=== PATIENT | female | born 1980 | race African-American/Black ===

== ENCOUNTER 2019-11-28 13:13 | Inpatient (IN) ==
[2019-11-28] MEDS ORDERED: ONDANSETRON 4 MG/2 ML VIAL IV STA (14:01)
[2019-11-28] MEDS ORDERED: AZITHROMYCIN INJ 500 MG in SODIUM CHLORIDE 0.9% 250 ML IV STA (14:01)
[2019-11-28] MEDS ORDERED: FUROSEMIDE 40 MG/4 ML VIAL IV STA (14:01)
[2019-11-28] MEDS ORDERED: methylPREDNISolone SOD SUC 125 MG/2 ML VIAL IV STA (14:01)
[2019-11-28] MEDS ORDERED: PIPERACILLIN/TAZOBACTAM 3,375 MG in SODIUM CHLORIDE 0.9% 100 ML IV STA (14:01)
[2019-11-28] MEDS ORDERED: ALBUTEROL/IPRATROPIUM 3 ML NEB RESP TX STA (14:01)
[2019-11-28 15:04] LABS: ABG Base Excess 7.6 MMOL/L (-2.5-2.5); ABG HCO3 30.8 MMOL/L (20-26); ABG Oxygen Saturation 86.4 % (95-100); ABG PH 7.526 (7.35-7.45); ABG PO2 48.1 MM HG (80-95); ABG TCO2 31.9 MMOL/L (23-27)
[2019-11-28 15:25] LABS: Basophils % 0.3 % (0.0-0.8); Hematocrit 40.8 VOL% (35.7-47.0); Hemoglobin 12.8 GM/DL (12.0-16.0); Immature Granulocytes % 0.7 %; Immature Granulocytes Absolute 0.08 #; Lymphocytes # 1.2 10*3/uL (1.4-4.0); Lymphocytes % 10.2 % (21.3-54.2); Mean Corpuscular HGB Conc 31.4 GM/DL (32-36); Mean Corpuscular Volume 82.8 FL (87-102); Mean Platelet Volume 11.7 FL (9.6-12.0); Neutrophils % 86.8 % (38.7-73.9); Platelet Count 217 T/CUMM (130-400); Red Blood Count 4.93 MC/CUMM (3.8-5.5); Red Cell Distribution Width 13.7 % (9.3-17.3); White Blood Count 11.5 T/CUMM (4-12)
[2019-11-28 15:41] LABS: PT Patient Result 10.9 SECS (9.8-11.9)
[2019-11-28 15:45] LABS: Apearance,Urine CLEAR (Clear); Bilirubin,Urine Negative (Negative); Blood, Urine Negative (Negative); Glucose,Urine (UA) Negative (Negative); Ketones,Urine Negative (Negative); Nitrite,Urine Negative (Negative); Protein,Urine 100 MG/DL; RBC,Urine 1 /HPF (0-4); Squamous Epithelial Cell,Urine Occasional /HPF (0-10); Urine Color Yellow (Yellow); Urine Specific Gravity 1.014 (1.001-1.035); WBC,Urine 1 /HPF (0-6)
[2019-11-28 15:46] LABS: Barbiturates Screen,Urine Negative (Negative); Benzodiazepines Screen,Urine Negative (Negative); Cannabinoid Screen,Urine Negative (Negative); Opiate Screen,Urine Positive (Negative); Phencyclidine Screen,Urine Negative (Negative)
[2019-11-28 16:00] LABS: Alanine Aminotransferase 83 U/L (13-56); Albumin 2.9 G/DL (3.4-5.0); Alkaline Phosphatase 102 U/L (45-117); Aspartate Amino Transferase 120 U/L (0-37); Blood Urea Nitrogen 6 MG/DL (7-18); Calcium 8.3 MG/DL (8.5-10.1); Estimated Glom Filtration Rate 122 ML/MIN; Ferritin 761.2 ng/ml (8-252); Glucose 136 MG/DL (74-106); Osmolality,Calculated 263.5 MOS/KG (273-304); Total Protein 8.2 G/DL (6.4-8.3); Troponin I < 0.015 NG/ML (0.00-0.045)
[2019-11-28] MEDS ORDERED: ACETAMINOPHEN 500 MG TABLET ONE (16:33)
[2019-11-28] MEDS ORDERED: ACETAMINOPHEN 500 MG TABLET PO STA (16:45)
[2019-11-28] MEDS ORDERED: ALUMINUM/MAGNES/SIMETH MAX STR 30 ML UDCUP PO PRN (20:03)
[2019-11-28] MEDS ORDERED: ONDANSETRON 4 MG/2 ML VIAL IV PRN (20:03)
[2019-11-28] MEDS ORDERED: ALBUTEROL SULFATE INH PRN (20:03)
[2019-11-28] MEDS ORDERED: OSELTAMIVIR 75 MG CAPSULE PO SCH (20:03)
[2019-11-28] MEDS: FAMOTIDINE 20 MG/2 ML VIAL IV SCH (21:30)
[2019-11-28] MEDS: HYDROXYCHLOROQUINE 200 MG TABLET PO SCH (21:30)
[2019-11-28] MEDS ORDERED: hydrALAZINE 20 MG/1 ML VIAL IV PRN (22:22)
[2019-11-29 06:19] LABS: Basophils % 0.1 % (0.0-0.8); Hematocrit 43.5 VOL% (35.7-47.0); Hemoglobin 13.5 GM/DL (12.0-16.0); Immature Granulocytes % 0.6 %; Immature Granulocytes Absolute 0.05 #; Lymphocytes # 1.1 10*3/uL (1.4-4.0); Lymphocytes % 12.6 % (21.3-54.2); Mean Corpuscular Volume 83.2 FL (87-102); Mean Platelet Volume 12.1 FL (9.6-12.0); Monocytes % 3.8 % (1.7-12.7); Neutrophils % 82.9 % (38.7-73.9); Platelet Count 231 T/CUMM (130-400); Red Blood Count 5.23 MC/CUMM (3.8-5.5); Red Cell Distribution Width 13.6 % (9.3-17.3); White Blood Count 8.5 T/CUMM (4-12)
[2019-11-29 07:05] LABS: Blood Urea Nitrogen 10 MG/DL (7-18); Calcium 8.1 MG/DL (8.5-10.1); Estimated Glom Filtration Rate 129 ML/MIN; Glucose 197 MG/DL (74-106); Osmolality,Calculated 265.7 MOS/KG (273-304); Troponin I < 0.015 NG/ML (0.00-0.045)
[2019-11-29] MEDS: HYDROXYCHLOROQUINE 200 MG TABLET PO SCH (08:03)
[2019-11-29] MEDS: ENOXAPARIN 40 MG/0.4 ML SYRINGE SUBCUT SCH (08:03)
[2019-11-29] MEDS: FAMOTIDINE 20 MG/2 ML VIAL IV SCH ×3 (08:03→22:26)
[2019-11-29] MEDS ORDERED: ZINC SULFATE 220 MG CAPSULE PO SCH (09:00)
[2019-11-29] MEDS ORDERED: HYDROXYCHLOROQUINE 200 MG TABLET PO SCH (21:00)
[2019-11-29] MEDS: ACETAMINOPHEN 325 MG TABLET PO PRN (22:26)
[2019-11-30] MEDS: LEVOFLOXACIN INJ 750 MG in PREMIX 1 EACH IV SCH (00:01)
[2019-11-30] MEDS: ALBUTEROL INHALER 18 GM INH SCH (01:01)
[2019-11-30 04:14] LABS: ABG HCO3 33.6 MMOL/L (20-26); ABG Oxygen Saturation 93.7 % (95-100); ABG PCO2 46.4 MM HG (35-48); ABG PH 7.484 (7.35-7.45); ABG PO2 67.3 MM HG (80-95); ABG TCO2 30.8 MMOL/L (23-27); Allen Test Positive; Pt O2 Delivery Device Other
[2019-11-30 07:20] LABS: Basophils % 0.1 % (0.0-0.8); Hematocrit 37.6 VOL% (35.7-47.0); Hemoglobin 11.6 GM/DL (12.0-16.0); Immature Granulocytes % 0.9 %; Immature Granulocytes Absolute 0.14 #; Lymphocytes # 1.3 10*3/uL (1.4-4.0); Mean Corpuscular HGB Conc 30.9 GM/DL (32-36); Mean Corpuscular Volume 83.4 FL (87-102); Mean Platelet Volume 11.9 FL (9.6-12.0); Monocytes % 2.7 % (1.7-12.7); Neutrophils % 87.3 % (38.7-73.9); Platelet Count 260 T/CUMM (130-400); Red Blood Count 4.51 MC/CUMM (3.8-5.5); Red Cell Distribution Width 13.9 % (9.3-17.3); White Blood Count 14.9 T/CUMM (4-12)
[2019-11-30] MEDS: ENOXAPARIN 40 MG/0.4 ML SYRINGE SUBCUT SCH (08:35)
[2019-11-30] MEDS: AZITHROMYCIN 250 MG TABLET PO SCH (08:35)
[2019-11-30] MEDS: FAMOTIDINE 20 MG/2 ML VIAL IV SCH ×2 (08:35→21:35)
[2019-11-30 10:14] LABS: Calcium 8.5 MG/DL (8.5-10.1); Osmolality,Calculated 273.2 MOS/KG (273-304)
[2019-11-30] MEDS: methylPREDNISolone SOD SUC 40 MG/1 ML VIAL IV SCH (17:40)
[2019-11-30] MEDS: ACETAMINOPHEN 325 MG TABLET PO PRN (18:13)
[2019-12-01] MEDS: ALBUTEROL INHALER 18 GM INH SCH ×5 (00:15→19:00)
[2019-12-01] MEDS: LEVOFLOXACIN INJ 750 MG in PREMIX 1 EACH IV SCH ×2 (00:20→22:30)
[2019-12-01] MEDS: ACETAMINOPHEN 325 MG TABLET PO PRN ×2 (04:30→21:50)
[2019-12-01 05:53] LABS: Calcium 8.4 MG/DL (8.5-10.1); Osmolality,Calculated 279.8 MOS/KG (273-304)
[2019-12-01] MEDS: methylPREDNISolone SOD SUC 40 MG/1 ML VIAL IV SCH (08:12)
[2019-12-01] MEDS: FAMOTIDINE 20 MG/2 ML VIAL IV SCH ×2 (08:13→21:51)
[2019-12-01] MEDS: ENOXAPARIN 40 MG/0.4 ML SYRINGE SUBCUT SCH (08:13)
[2019-12-01] MEDS: AZITHROMYCIN 250 MG TABLET PO SCH (08:13)
[2019-12-01 08:50] LABS: Hepatitis B Core IgM Quant 0.14 Index; Hepatitis B Surface Ag Quant < 0.10 Index; Hepatitis B Surface Ag Result Negative (Negative); Hepatitis C Virus Ab Quant 0.07 Index; Hepatitis C Virus Ab Result Negative (Negative)
[2019-12-01 09:51] LABS: HIV Antigen/Antibody Result Nonreactive (Nonreactive)
[2019-12-01] MEDS: POTASSIUM CHLORIDE 20 MEQ TABLET PO PRN ×3 (16:00→21:50)
[2019-12-02] MEDS: ALBUTEROL INHALER 18 GM INH SCH ×4 (01:00→19:12)
[2019-12-02] MEDS: ACETAMINOPHEN 325 MG TABLET PO PRN (04:35)
[2019-12-02 05:26] LABS: Calcium 8.4 MG/DL (8.5-10.1); Osmolality,Calculated 284.4 MOS/KG (273-304)
[2019-12-02 05:41] LABS: Basophils % 0.2 % (0.0-0.8); Hematocrit 36.7 VOL% (35.7-47.0); Immature Granulocytes % 1.7 %; Immature Granulocytes Absolute 0.29 #; Lymphocytes # 2.1 10*3/uL (1.4-4.0); Lymphocytes % 12.4 % (21.3-54.2); Mean Platelet Volume 11.3 FL (9.6-12.0); Monocytes % 7.1 % (1.7-12.7); Neutrophils % 78.6 % (38.7-73.9); Platelet Count 337 T/CUMM (130-400); Red Blood Count 4.32 MC/CUMM (3.8-5.5); Red Cell Distribution Width 13.9 % (9.3-17.3); White Blood Count 16.9 T/CUMM (4-12)
[2019-12-02 06:00] LABS: Albumin 2.1 G/DL (3.4-5.0); Bilirubin,Total 0.4 MG/DL (0.2-1.0); Calcium 8.6 MG/DL (8.5-10.1); Ferritin 1311.7 ng/ml (8-252); Osmolality,Calculated 282.5 MOS/KG (273-304); Total Protein 7.4 G/DL (6.4-8.3)
[2019-12-02 06:03] LABS: Band Neutrophils 2 % (0-10); Hypochromasia 1+; Lymphocytes 11 % (20-55); Microcytosis Slight; Platelet Estimate Adequate; Segmented Neutrophils 81 % (50-85); Total Cells Counted 100
[2019-12-02 06:49] LABS: Sedimentation Rate-Westergren 100 MM/HR (0-20)
[2019-12-02] MEDS ORDERED: VANCOMYCIN INJ 1,750 MG in SODIUM CHLORIDE 0.9% 250 ML IV SCH (07:30)
[2019-12-02 08:13] LABS: ABG Base Excess 9.8 MMOL/L (-2.5-2.5); ABG HCO3 34.8 MMOL/L (20-26); ABG Oxygen Saturation 96.7 % (95-100); ABG PCO2 48.8 MM HG (35-48); ABG PH 7.471 (7.35-7.45); ABG PO2 91.7 MM HG (80-95); ABG TCO2 36.3 MMOL/L (23-27)
[2019-12-02] MEDS: POTASSIUM CHLORIDE 20 MEQ TABLET PO PRN (10:15)
[2019-12-02] MEDS: FAMOTIDINE 20 MG/2 ML VIAL IV SCH ×2 (10:15→20:45)
[2019-12-02] MEDS: ENOXAPARIN 40 MG/0.4 ML SYRINGE SUBCUT SCH (10:15)
[2019-12-02] MEDS: PIPERACILLIN/TAZOBACTAM 3,375 MG in SODIUM CHLORIDE 0.9% 100 ML IV SCH ×2 (10:15→17:15)
[2019-12-02] MEDS: methylPREDNISolone SOD SUC 40 MG/1 ML VIAL IV SCH (10:20)
[2019-12-02] MEDS ORDERED: FUROSEMIDE 40 MG/4 ML VIAL IV ONE (11:00)
[2019-12-02] MEDS ORDERED: VANCOMYCIN INJ 1,500 MG in SODIUM CHLORIDE 0.9% 500 ML IV SCH (12:00)
[2019-12-02] MEDS: VANCOMYCIN INJ 1,500 MG in SODIUM CHLORIDE 0.9% 500 ML IV SCH (14:34)
[2019-12-03] MEDS: PIPERACILLIN/TAZOBACTAM 3,375 MG in SODIUM CHLORIDE 0.9% 100 ML IV SCH ×3 (00:05→16:50)
[2019-12-03] MEDS: ALBUTEROL INHALER 18 GM INH SCH ×4 (01:00→19:00)
[2019-12-03] MEDS: VANCOMYCIN INJ 1,500 MG in SODIUM CHLORIDE 0.9% 500 ML IV SCH ×2 (02:15→14:15)
[2019-12-03 04:34] LABS: Basophils # 0.1 10*3/uL (0.0-0.2); Basophils % 0.3 % (0.0-0.8); Hematocrit 36.4 VOL% (35.7-47.0); Hemoglobin 11.1 GM/DL (12.0-16.0); Immature Granulocytes % 1.9 %; Immature Granulocytes Absolute 0.32 #; Lymphocytes # 2.3 10*3/uL (1.4-4.0); Lymphocytes % 13.2 % (21.3-54.2); Mean Corpuscular HGB Conc 30.5 GM/DL (32-36); Mean Corpuscular Volume 84.7 FL (87-102); Mean Platelet Volume 11.3 FL (9.6-12.0); Monocytes % 7.4 % (1.7-12.7); Neutrophils % 77.2 % (38.7-73.9); Platelet Count 369 T/CUMM (130-400); Red Cell Distribution Width 13.8 % (9.3-17.3); White Blood Count 17.2 T/CUMM (4-12)
[2019-12-03 04:35] LABS: ABG HCO3 31.7 MMOL/L (20-26); ABG Oxygen Saturation 93.4 % (95-100); ABG PCO2 49.6 MM HG (35-48); ABG PH 7.438 (7.35-7.45); ABG PO2 67.3 MM HG (80-95); Allen Test Positive; Pt O2 Delivery Device Other
[2019-12-03 05:08] LABS: Calcium 8.7 MG/DL (8.5-10.1); Osmolality,Calculated 284.3 MOS/KG (273-304)
[2019-12-03 05:13] LABS: Albumin 2.3 G/DL (3.4-5.0); Bilirubin,Total 0.7 MG/DL (0.2-1.0); Calcium 8.3 MG/DL (8.5-10.1); Ferritin 849.9 ng/ml (8-252); Osmolality,Calculated 282.3 MOS/KG (273-304); Total Protein 6.6 G/DL (6.4-8.3)
[2019-12-03 09:21] LABS: Sedimentation Rate-Westergren 75 MM/HR (0-20)
[2019-12-03] MEDS: POTASSIUM CHLORIDE 20 MEQ TABLET PO PRN (09:30)
[2019-12-03] MEDS: FAMOTIDINE 20 MG/2 ML VIAL IV SCH ×2 (09:30→21:20)
[2019-12-03] MEDS: ENOXAPARIN 40 MG/0.4 ML SYRINGE SUBCUT SCH ×2 (09:35→21:15)
[2019-12-03] MEDS ORDERED: FUROSEMIDE 40 MG/4 ML VIAL IV ONE (10:39)
[2019-12-03 15:08] LABS: ABG Base Excess 8.2 MMOL/L (-2.5-2.5); ABG HCO3 31.9 MMOL/L (20-26); ABG Oxygen Saturation 96.2 % (95-100); ABG PCO2 39.3 MM HG (35-48); ABG PH 7.515 (7.35-7.45); ABG PO2 77.4 MM HG (80-95); Pt O2 Delivery Device Other
[2019-12-03] MEDS: ALPRAZolam 0.25 MG TABLET PO PRN (16:50)
[2019-12-04] MEDS: PIPERACILLIN/TAZOBACTAM 3,375 MG in SODIUM CHLORIDE 0.9% 100 ML IV SCH ×3 (00:20→18:16)
[2019-12-04] MEDS: ALBUTEROL INHALER 18 GM INH SCH ×2 (01:00→07:00)
[2019-12-04 03:36] LABS: Allen Test Positive; Pt O2 Delivery Device Other
[2019-12-04 03:38] LABS: ABG Base Excess 7.3 MMOL/L (-2.5-2.5); ABG Oxygen Saturation 91.2 % (95-100); ABG PO2 56.2 MM HG (80-95); ABG TCO2 27.5 MMOL/L (23-27)
[2019-12-04] MEDS: VANCOMYCIN INJ 1,500 MG in SODIUM CHLORIDE 0.9% 500 ML IV SCH (04:35)
[2019-12-04] MEDS: ALPRAZolam 0.25 MG TABLET PO PRN (04:40)
[2019-12-04 06:29] LABS: Albumin 2.2 G/DL (3.4-5.0); Bilirubin,Total 0.8 MG/DL (0.2-1.0); Calcium 8.8 MG/DL (8.5-10.1); Ferritin 566.1 ng/ml (8-252); Osmolality,Calculated 278.7 MOS/KG (273-304); Total Protein 7.6 G/DL (6.4-8.3)
[2019-12-04 06:33] LABS: Basophils # 0.1 10*3/uL (0.0-0.2); Basophils % 0.3 % (0.0-0.8); Eosinophils # 0.1 10*3/uL (0.0-0.87); Eosinophils % 0.3 % (0.00-10.9); Hematocrit 40.1 VOL% (35.7-47.0); Hemoglobin 12.2 GM/DL (12.0-16.0); Immature Granulocytes % 3.3 %; Lymphocytes # 2.7 10*3/uL (1.4-4.0); Lymphocytes % 12.8 % (21.3-54.2); Mean Corpuscular HGB Conc 30.4 GM/DL (32-36); Mean Corpuscular Volume 84.2 FL (87-102); Mean Platelet Volume 11.7 FL (9.6-12.0); Monocytes % 5.6 % (1.7-12.7); Neutrophils % 77.7 % (38.7-73.9); Platelet Count 407 T/CUMM (130-400); Red Blood Count 4.76 MC/CUMM (3.8-5.5); Red Cell Distribution Width 13.8 % (9.3-17.3)
[2019-12-04 07:51] LABS: Hypochromasia 2+; Lymphocytes 8 % (20-55); Platelet Estimate Increased; Segmented Neutrophils 85 % (50-85); Total Cells Counted 100
[2019-12-04 08:18] LABS: Sedimentation Rate-Westergren 34 MM/HR (0-20)
[2019-12-04] MEDS: ENOXAPARIN 100 MG/ML SYRINGE SUBCUT SCH ×2 (09:05→20:22)
[2019-12-04] MEDS: POTASSIUM CHLORIDE 20 MEQ TABLET PO PRN (09:05)
[2019-12-04] MEDS: FAMOTIDINE 20 MG/2 ML VIAL IV SCH ×2 (10:12→20:22)
[2019-12-04] MEDS ORDERED: ETOMIDATE 20 MG/10 ML VIAL IV ONE ×2 (11:11→11:15)
[2019-12-04] MEDS ORDERED: SUCCINYLCHOLINE 200 MG/10 ML VIAL ONE (11:12)
[2019-12-04] MEDS ORDERED: SUCCINYLCHOLINE 200 MG/10 ML VIAL IV ONE (11:15)
[2019-12-04] MEDS ORDERED: SODIUM BICARBONATE 50 MEQ/50 ML SYRINGE IV ONE (11:23)
[2019-12-04] MEDS ORDERED: EPINEPHrine 1 MG/10 ML SYRINGE ONE (11:23)
[2019-12-04] MEDS: fentaNYL INJ 1,250 MCG in SODIUM CHLORIDE 0.9% 225 ML IV PRN (11:55)
[2019-12-04 11:56] LABS: ABG Base Excess -2.6 MMOL/L (-2.5-2.5); ABG HCO3 22.1 MMOL/L (20-26); ABG Oxygen Saturation 91.2 % (95-100); ABG PCO2 48.5 MM HG (35-48); ABG PH 7.304 (7.35-7.45); ABG PO2 73.4 MM HG (80-95); ABG TCO2 21.8 MMOL/L (23-27)
[2019-12-04] MEDS: ROCURONIUM 500 MG in SODIUM CHLORIDE 0.9% 500 ML IV PRN ×2 (12:01→20:59)
[2019-12-04] MEDS: SODIUM CHLORIDE 0.9% 1,000 ML IV SCH (13:37)
[2019-12-04] MEDS: NOREPINEPHRINE 8 MG in SODIUM CHLORIDE 0.9% 242 ML IV PRN (16:11)
[2019-12-04] MEDS: ACETAMINOPHEN 325 MG TABLET PO PRN (20:23)
[2019-12-05] MEDS ORDERED: VANCOMYCIN INJ 1,500 MG in SODIUM CHLORIDE 0.9% 500 ML IV SCH
[2019-12-05] MEDS: PIPERACILLIN/TAZOBACTAM 3,375 MG in SODIUM CHLORIDE 0.9% 100 ML IV SCH ×3 (00:29→22:33)
[2019-12-05 03:49] LABS: Basophils # 0.1 10*3/uL (0.0-0.2); Basophils % 0.4 % (0.0-0.8); Eosinophils # 0.2 10*3/uL (0.0-0.87); Eosinophils % 1.1 % (0.00-10.9); Hematocrit 32.5 VOL% (35.7-47.0); Hemoglobin 9.7 GM/DL (12.0-16.0); Immature Granulocytes % 4.1 %; Immature Granulocytes Absolute 0.93 #; Lymphocytes # 2.8 10*3/uL (1.4-4.0); Lymphocytes % 12.4 % (21.3-54.2); Mean Corpuscular HGB Conc 29.8 GM/DL (32-36); Mean Platelet Volume 11.2 FL (9.6-12.0); Monocytes % 5.3 % (1.7-12.7); Neutrophils % 76.7 % (38.7-73.9); Platelet Count 331 T/CUMM (130-400); Red Blood Count 3.78 MC/CUMM (3.8-5.5); Red Cell Distribution Width 14.3 % (9.3-17.3); White Blood Count 22.8 T/CUMM (4-12)
[2019-12-05] MEDS: fentaNYL INJ 1,250 MCG in SODIUM CHLORIDE 0.9% 225 ML IV PRN (03:55)
[2019-12-05 04:24] LABS: ABG Base Excess 0.1 MMOL/L (-2.5-2.5); ABG HCO3 24.5 MMOL/L (20-26); ABG Oxygen Saturation 97.8 % (95-100); ABG PCO2 45.1 MM HG (35-48); ABG PH 7.364 (7.35-7.45); ABG TCO2 23.5 MMOL/L (23-27); Allen Test Positive; Pt O2 Delivery Device Ventilator
[2019-12-05 04:25] LABS: Band Neutrophils 4 % (0-10); Eosinophils 2 % (0-10); Lymphocytes 16 % (20-55); Metamyelocytes 1 %; Myelocytes 1 %; Segmented Neutrophils 72 % (50-85); Total Cells Counted 100
[2019-12-05 04:26] LABS: Hypochromasia 1+; Platelet Estimate Normal; Reactive Lymphocytes Few
[2019-12-05 04:27] LABS: Giant Platelets Few
[2019-12-05 05:22] LABS: Albumin 1.7 G/DL (3.4-5.0); Bilirubin,Total 1.4 MG/DL (0.2-1.0); Calcium 7.4 MG/DL (8.5-10.1); Ferritin 467.4 ng/ml (8-252); Total Protein 6.1 G/DL (6.4-8.3)
[2019-12-05] MEDS: SODIUM CHLORIDE 0.9% 1,000 ML IV SCH ×2 (06:14→07:47)
[2019-12-05 07:26] LABS: Sedimentation Rate-Westergren 113 MM/HR (0-20)
[2019-12-05] MEDS: FAMOTIDINE 20 MG/2 ML VIAL IV SCH ×2 (08:28→09:30)
[2019-12-05] MEDS: ENOXAPARIN 100 MG/ML SYRINGE SUBCUT SCH (08:28)
[2019-12-05] MEDS: POTASSIUM CHLORIDE 20 MEQ TABLET PO PRN ×3 (08:30→16:10)
[2019-12-05] MEDS: ROCURONIUM 500 MG in SODIUM CHLORIDE 0.9% 500 ML IV PRN ×2 (08:30→19:06)
[2019-12-05] MEDS ORDERED: VANCOMYCIN INJ 1,500 MG in SODIUM CHLORIDE 0.9% 500 ML IV PRN (11:35)
[2019-12-05] MEDS: ACETAMINOPHEN 325 MG TABLET PO PRN ×2 (12:15→16:10)
[2019-12-05] MEDS ORDERED: SODIUM CHLORIDE 0.9% 1,000 ML IV PRN (12:19)
[2019-12-05] MEDS ORDERED: FUROSEMIDE 40 MG/4 ML VIAL IV ONE (12:43)
[2019-12-05 12:56] LABS: QuantiFERON-Tb Gold Pl Negative (Negative); TB2 Ag Minus Result 0 IU/mL
[2019-12-05 12:56] LABS: ABG Base Excess -1.5 MMOL/L (-2.5-2.5); ABG Oxygen Saturation 90.7 % (95-100); ABG PCO2 49.5 MM HG (35-48); ABG PH 7.314 (7.35-7.45); ABG PO2 68.1 MM HG (80-95)
[2019-12-05] MEDS ORDERED: ENOXAPARIN 60 MG/0.6 ML SYRINGE SUBCUT SCH (20:30)
[2019-12-05] MEDS: HYDROXYCHLOROQUINE 200 MG TABLET PO SCH (22:47)
[2019-12-06] MEDS: NOREPINEPHRINE 8 MG in SODIUM CHLORIDE 0.9% 242 ML IV PRN (03:24)
[2019-12-06] MEDS: fentaNYL INJ 1,250 MCG in SODIUM CHLORIDE 0.9% 225 ML IV PRN ×2 (03:26→16:59)
[2019-12-06 04:27] LABS: ABG Base Excess -1.1 MMOL/L (-2.5-2.5); ABG Oxygen Saturation 84.9 % (95-100); ABG PCO2 55.8 MM HG (35-48); ABG PH 7.287 (7.35-7.45); ABG PO2 54.5 MM HG (80-95); ABG TCO2 27.8 MMOL/L (23-27); Allen Test Positive; Pt O2 Delivery Device Ventilator
[2019-12-06 05:17] LABS: Basophils # 0.1 10*3/uL (0.0-0.2); Basophils % 0.4 % (0.0-0.8); Eosinophils # 0.5 10*3/uL (0.0-0.87); Eosinophils % 2.3 % (0.00-10.9); Hematocrit 33.5 VOL% (35.7-47.0); Immature Granulocytes % 2.8 %; Immature Granulocytes Absolute 0.63 #; Lymphocytes % 8.9 % (21.3-54.2); Mean Corpuscular HGB Conc 29.3 GM/DL (32-36); Mean Corpuscular Volume 88.4 FL (87-102); Mean Platelet Volume 11.8 FL (9.6-12.0); Monocytes % 5.7 % (1.7-12.7); Neutrophils % 79.9 % (38.7-73.9); Platelet Count 326 T/CUMM (130-400); Red Blood Count 3.79 MC/CUMM (3.8-5.5); Red Cell Distribution Width 14.6 % (9.3-17.3); White Blood Count 22.3 T/CUMM (4-12)
[2019-12-06 05:22] LABS: Hemoglobin 9.8 GM/DL (12.0-16.0)
[2019-12-06 05:23] LABS: Band Neutrophils 1 % (0-10); Eosinophils 3 % (0-10); Hypochromasia 1+; Lymphocytes 6 % (20-55); Microcytosis 1+; Platelet Estimate Adequate; Segmented Neutrophils 83 % (50-85); Total Cells Counted 100
[2019-12-06 05:26] LABS: Albumin 1.8 G/DL (3.4-5.0); Bilirubin,Total 1.2 MG/DL (0.2-1.0); Calcium 7.8 MG/DL (8.5-10.1); Ferritin 271.5 ng/ml (8-252); Osmolality,Calculated 296.7 MOS/KG (273-304)
[2019-12-06] MEDS: ROCURONIUM 500 MG in SODIUM CHLORIDE 0.9% 500 ML IV PRN ×2 (05:29→15:44)
[2019-12-06 05:40] LABS: Calcium 7.6 MG/DL (8.5-10.1); Osmolality,Calculated 294.8 MOS/KG (273-304)
[2019-12-06] MEDS: PIPERACILLIN/TAZOBACTAM 3,375 MG in SODIUM CHLORIDE 0.9% 100 ML IV SCH (06:00)
[2019-12-06 06:49] LABS: Sedimentation Rate-Westergren 99 MM/HR (0-20)
[2019-12-06] MEDS: FAMOTIDINE 20 MG/2 ML VIAL IV SCH (08:18)
[2019-12-06] MEDS: ACETAMINOPHEN 325 MG TABLET PO PRN (08:18)
[2019-12-06] MEDS: HYDROXYCHLOROQUINE 200 MG TABLET PO SCH ×2 (08:18→20:24)
[2019-12-06] MEDS: ZINC SULFATE 220 MG CAPSULE PO SCH (08:18)
[2019-12-06] MEDS: MULTIVITAMIN LIQUID (CENTRUM) 60 ML BOTTLE PO SCH (08:18)
[2019-12-06] MEDS ORDERED: VANCOMYCIN INJ 1,500 MG in SODIUM CHLORIDE 0.9% 500 ML IV ONE (09:00)
[2019-12-06] MEDS ORDERED: SODIUM CHLORIDE 0.9% 500 ML IV ONE (11:02)
[2019-12-06] MEDS: MEROPENEM 500 MG in SODIUM CHLORIDE 0.9% 100 ML IV SCH ×2 (12:07→23:23)
[2019-12-06] MEDS: SODIUM CHLORIDE 0.45% 1,000 ML IV SCH ×3 (12:51→23:29)
[2019-12-06] MEDS ORDERED: PIPERACILLIN/TAZOBACTAM 3,375 MG in SODIUM CHLORIDE 0.9% 100 ML IV SCH (18:00)
[2019-12-06] MEDS: ENOXAPARIN 60 MG/0.6 ML SYRINGE SUBCUT SCH (20:23)
[2019-12-07] MEDS: ACETAMINOPHEN 325 MG/10.15 ML UDCUP NG PRN ×2 (01:05→11:49)
[2019-12-07] MEDS ORDERED: DIGOXIN 0.5 MG/2 ML AMP IV ONE ×2 (01:35→02:45)
[2019-12-07] MEDS: ROCURONIUM 500 MG in SODIUM CHLORIDE 0.9% 500 ML IV PRN ×3 (01:55→19:31)
[2019-12-07 04:21] LABS: Allen Test Positive; Pt O2 Delivery Device Ventilator
[2019-12-07 04:23] LABS: ABG Base Excess -7.5 MMOL/L (-2.5-2.5); ABG HCO3 24.7 MMOL/L (20-26); ABG Oxygen Saturation 89.1 % (95-100); ABG PO2 70.9 MM HG (80-95); ABG TCO2 27.7 MMOL/L (23-27)
[2019-12-07 04:29] LABS: ABG PCO2 97.8 MM HG (35-48)
[2019-12-07 05:24] LABS: Albumin 1.8 G/DL (3.4-5.0); Bilirubin,Total 0.8 MG/DL (0.2-1.0); Osmolality,Calculated 295.1 MOS/KG (273-304); Total Protein 7.6 G/DL (6.4-8.3)
[2019-12-07] MEDS: SODIUM CHLORIDE 0.45% 1,000 ML IV SCH ×5 (06:06→22:40)
[2019-12-07 06:13] LABS: Basophils # 0.2 10*3/uL (0.0-0.2); Basophils % 0.5 % (0.0-0.8); Eosinophils # 0.4 10*3/uL (0.0-0.87); Eosinophils % 1.2 % (0.00-10.9); Hematocrit 35.5 VOL% (35.7-47.0); Hemoglobin 9.8 GM/DL (12.0-16.0); Immature Granulocytes % 6.3 %; Lymphocytes # 1.7 10*3/uL (1.4-4.0); Lymphocytes % 5.6 % (21.3-54.2); Mean Corpuscular HGB Conc 27.6 GM/DL (32-36); Mean Corpuscular Volume 93.9 FL (87-102); Mean Platelet Volume 11.7 FL (9.6-12.0); Monocytes % 5.8 % (1.7-12.7); NRBC # 0.02 10*3/uL; Neutrophils % 80.6 % (38.7-73.9); Platelet Count 340 T/CUMM (130-400); Red Blood Count 3.78 MC/CUMM (3.8-5.5); Red Cell Distribution Width 15.2 % (9.3-17.3); White Blood Count 30.1 T/CUMM (4-12)
[2019-12-07 06:36] LABS: Band Neutrophils 2 % (0-10); Eosinophils 1 % (0-10); Hypochromasia 1+; Lymphocytes 7 % (20-55); Microcytosis Slight; Platelet Estimate Adequate; Segmented Neutrophils 86 % (50-85); Total Cells Counted 100
[2019-12-07] MEDS: fentaNYL INJ 1,250 MCG in SODIUM CHLORIDE 0.9% 225 ML IV PRN ×2 (06:38→20:40)
[2019-12-07] MEDS: MULTIVITAMIN LIQUID (CENTRUM) 60 ML BOTTLE PO SCH (08:20)
[2019-12-07] MEDS: HYDROXYCHLOROQUINE 200 MG TABLET PO SCH ×2 (08:20→20:21)
[2019-12-07] MEDS: FAMOTIDINE 20 MG/2 ML VIAL IV SCH (08:20)
[2019-12-07 08:45] LABS: ABG Base Excess -5.6 MMOL/L (-2.5-2.5); ABG HCO3 19.7 MMOL/L (20-26); ABG Oxygen Saturation 95.1 % (95-100); ABG PCO2 44.4 MM HG (35-48); ABG PH 7.281 (7.35-7.45); ABG PO2 73.3 MM HG (80-95); ABG TCO2 19.6 MMOL/L (23-27); Allen Test Positive; Pt O2 Delivery Device Ventilator
[2019-12-07] MEDS: MEROPENEM 500 MG in SODIUM CHLORIDE 0.9% 100 ML IV SCH (10:43)
[2019-12-07] MEDS: ENOXAPARIN 60 MG/0.6 ML SYRINGE SUBCUT SCH (20:21)
[2019-12-08] MEDS: MEROPENEM 500 MG in SODIUM CHLORIDE 0.9% 100 ML IV SCH ×3 (00:14→23:44)
[2019-12-08] MEDS: SODIUM CHLORIDE 0.45% 1,000 ML IV SCH ×3 (00:17→16:26)
[2019-12-08 03:38] LABS: Allen Test Positive; Pt O2 Delivery Device Ventilator
[2019-12-08 03:39] LABS: ABG Base Excess -8.3 MMOL/L (-2.5-2.5); ABG HCO3 19.5 MMOL/L (20-26); ABG Oxygen Saturation 85.1 % (95-100); ABG PO2 56.5 MM HG (80-95); ABG TCO2 21.1 MMOL/L (23-27)
[2019-12-08] MEDS: fentaNYL INJ 1,250 MCG in SODIUM CHLORIDE 0.9% 225 ML IV PRN ×4 (03:46→19:23)
[2019-12-08] MEDS: ROCURONIUM 500 MG in SODIUM CHLORIDE 0.9% 500 ML IV PRN ×2 (03:46→13:46)
[2019-12-08 04:48] LABS: Basophils # 0.1 10*3/uL (0.0-0.2); Basophils % 0.4 % (0.0-0.8); Eosinophils # 0.3 10*3/uL (0.0-0.87); Eosinophils % 1.2 % (0.00-10.9); Hematocrit 29.5 VOL% (35.7-47.0); Immature Granulocytes % 5.5 %; Immature Granulocytes Absolute 1.34 #; Lymphocytes # 1.3 10*3/uL (1.4-4.0); Lymphocytes % 5.5 % (21.3-54.2); Mean Corpuscular HGB Conc 28.8 GM/DL (32-36); Mean Corpuscular Volume 91.3 FL (87-102); Mean Platelet Volume 12.1 FL (9.6-12.0); NRBC # 0.02 10*3/uL; Neutrophils % 82.4 % (38.7-73.9); Platelet Count 273 T/CUMM (130-400); Red Blood Count 3.23 MC/CUMM (3.8-5.5); Red Cell Distribution Width 14.6 % (9.3-17.3); White Blood Count 24.3 T/CUMM (4-12)
[2019-12-08 04:49] LABS: Hemoglobin 8.5 GM/DL (12.0-16.0)
[2019-12-08 05:18] LABS: Hypochromasia 1+; Lymphocytes 3 % (20-55); Microcytosis Slight; Platelet Estimate Adequate; Segmented Neutrophils 94 % (50-85); Total Cells Counted 100
[2019-12-08] MEDS ORDERED: DEXTROSE 10% 250 ML BAG IV PRN (07:35)
[2019-12-08] MEDS ORDERED: GLUCAGON 1 MG VIAL IM PRN (07:35)
[2019-12-08] MEDS: MULTIVITAMIN LIQUID (CENTRUM) 60 ML BOTTLE PO SCH (08:27)
[2019-12-08] MEDS: FAMOTIDINE 20 MG/2 ML VIAL IV SCH (08:27)
[2019-12-08] MEDS: ZINC SULFATE 220 MG CAPSULE PO SCH (08:28)
[2019-12-08] MEDS: HYDROXYCHLOROQUINE 200 MG TABLET PO SCH ×2 (08:28→20:01)
[2019-12-08] MEDS ORDERED: NOREPINEPHRINE 16 MG in SODIUM CHLORIDE 0.9% 234 ML IV PRN (08:29)
[2019-12-08 09:07] LABS: ABG Base Excess -7.1 MMOL/L (-2.5-2.5); ABG HCO3 18.5 MMOL/L (20-26); ABG Oxygen Saturation 89.1 % (95-100); ABG PCO2 39.8 MM HG (35-48); ABG PH 7.287 (7.35-7.45); ABG TCO2 17.8 MMOL/L (23-27)
[2019-12-08 09:21] LABS: Calcium 7.6 MG/DL (8.5-10.1); Osmolality,Calculated 290.4 MOS/KG (273-304)
[2019-12-08] MEDS: INSULIN REGULAR 100 UNIT/ML SUBCUT SCH ×3 (11:53→23:47)
[2019-12-08] MEDS: MAGNESIUM SULF RIDER 2 GM in PREMIX 1 EACH IV PRN (12:37)
[2019-12-08] MEDS: HEPARIN DRIP 25,000 UNITS/500 ML PREMIX IV SCH (20:54)
[2019-12-09] MEDS: SODIUM CHLORIDE 0.45% 1,000 ML IV SCH ×2 (01:01→08:09)
[2019-12-09] MEDS: fentaNYL INJ 1,250 MCG in SODIUM CHLORIDE 0.9% 225 ML IV PRN ×5 (01:17→21:20)
[2019-12-09] MEDS: ROCURONIUM 500 MG in SODIUM CHLORIDE 0.9% 500 ML IV PRN ×2 (02:23→19:21)
[2019-12-09 02:48] LABS: Basophils # 0.1 10*3/uL (0.0-0.2); Basophils % 0.5 % (0.0-0.8); Eosinophils # 0.6 10*3/uL (0.0-0.87); Eosinophils % 2.3 % (0.00-10.9); Hematocrit 28.5 VOL% (35.7-47.0); Hemoglobin 8.2 GM/DL (12.0-16.0); Immature Granulocytes % 5.6 %; Immature Granulocytes Absolute 1.35 #; Lymphocytes # 2.1 10*3/uL (1.4-4.0); Lymphocytes % 8.7 % (21.3-54.2); Mean Corpuscular HGB Conc 28.8 GM/DL (32-36); Mean Corpuscular Volume 90.2 FL (87-102); Mean Platelet Volume 11.3 FL (9.6-12.0); Monocytes % 5.7 % (1.7-12.7); NRBC # 0.06 10*3/uL; Neutrophils % 77.2 % (38.7-73.9); Platelet Count 289 T/CUMM (130-400); Red Blood Count 3.16 MC/CUMM (3.8-5.5); Red Cell Distribution Width 14.7 % (9.3-17.3)
[2019-12-09 03:12] LABS: Alanine Aminotransferase 24 U/L (13-56); Albumin 1.6 G/DL (3.4-5.0); Alkaline Phosphatase 125 U/L (45-117); Aspartate Amino Transferase 28 U/L (0-37); Bilirubin,Total < 0.39 MG/DL (0.2-1.0); Blood Urea Nitrogen 56 MG/DL (7-18); Calcium 7.5 MG/DL (8.5-10.1); Estimated Glom Filtration Rate 27 ML/MIN; Glucose 120 MG/DL (74-106); Osmolality,Calculated 297.3 MOS/KG (273-304); Total Protein 6.5 G/DL (6.4-8.3)
[2019-12-09 03:30] LABS: ABG Base Excess -10.2 MMOL/L (-2.5-2.5); ABG Oxygen Saturation 87.5 % (95-100); ABG PCO2 43.4 MM HG (35-48); ABG PH 7.212 (7.35-7.45); ABG PO2 62.4 MM HG (80-95); ABG TCO2 18.4 MMOL/L (23-27); Allen Test Positive; Pt O2 Delivery Device Ventilator
[2019-12-09 04:08] LABS: Lymphocytes 9 % (20-55); Metamyelocytes 2 %; Myelocytes 1 %; Segmented Neutrophils 82 % (50-85); Total Cells Counted 100
[2019-12-09 04:09] LABS: Anisocytosis 1+
[2019-12-09 04:10] LABS: Platelet Estimate Normal
[2019-12-09] MEDS: INSULIN REGULAR 100 UNIT/ML SUBCUT SCH ×3 (05:55→17:30)
[2019-12-09] MEDS: MULTIVITAMIN LIQUID (CENTRUM) 60 ML BOTTLE PO SCH (08:05)
[2019-12-09] MEDS: FAMOTIDINE 20 MG/2 ML VIAL IV SCH (08:06)
[2019-12-09] MEDS: HYDROXYCHLOROQUINE 200 MG TABLET PO SCH (08:06)
[2019-12-09] MEDS ORDERED: DIGOXIN 0.5 MG/2 ML AMP IV ONE ×2 (10:49→11:30)
[2019-12-09] MEDS: HEPARIN DRIP 25,000 UNITS/500 ML PREMIX IV SCH ×2 (12:23→22:26)
[2019-12-09] MEDS: MEROPENEM 500 MG in SODIUM CHLORIDE 0.9% 100 ML IV SCH ×2 (14:01→22:26)
[2019-12-09] MEDS: SODIUM CHLORIDE 23.4% CONC INJ 38.5 MEQ, SODIUM BICARB INJ 50 MEQ in STERILE WATER INJ ... IV SCH ×2 (15:09→22:25)
[2019-12-10] MEDS: INSULIN REGULAR 100 UNIT/ML SUBCUT SCH ×4 (00:40→18:09)
[2019-12-10] MEDS: fentaNYL INJ 1,250 MCG in SODIUM CHLORIDE 0.9% 225 ML IV PRN ×5 (03:14→20:49)
[2019-12-10] MEDS: SODIUM CHLORIDE 23.4% CONC INJ 38.5 MEQ, SODIUM BICARB INJ 50 MEQ in STERILE WATER INJ ... IV SCH ×3 (03:15→13:50)
[2019-12-10 04:21] LABS: Basophils # 0.2 10*3/uL (0.0-0.2); Basophils % 0.8 % (0.0-0.8); Eosinophils # 0.5 10*3/uL (0.0-0.87); Eosinophils % 1.8 % (0.00-10.9); Hemoglobin 7.5 GM/DL (12.0-16.0); Immature Granulocytes % 7.4 %; Immature Granulocytes Absolute 1.85 #; Lymphocytes # 2.4 10*3/uL (1.4-4.0); Lymphocytes % 9.6 % (21.3-54.2); Mean Corpuscular HGB Conc 28.8 GM/DL (32-36); Mean Corpuscular Volume 88.7 FL (87-102); Mean Platelet Volume 12.2 FL (9.6-12.0); Monocytes % 5.4 % (1.7-12.7); NRBC # 0.17 10*3/uL; Platelet Count 309 T/CUMM (130-400); Red Blood Count 2.93 MC/CUMM (3.8-5.5); Red Cell Distribution Width 14.7 % (9.3-17.3); White Blood Count 25.1 T/CUMM (4-12)
[2019-12-10 04:36] LABS: Calcium 8.3 MG/DL (8.5-10.1)
[2019-12-10] MEDS: HEPARIN DRIP 25,000 UNITS/500 ML PREMIX IV SCH ×2 (04:46→21:51)
[2019-12-10 05:30] LABS: ABG Base Excess -10.5 MMOL/L (-2.5-2.5); ABG HCO3 16.5 MMOL/L (20-26); ABG Oxygen Saturation 91.5 % (95-100); ABG PCO2 40.8 MM HG (35-48); ABG PH 7.224 (7.35-7.45); ABG PO2 71.9 MM HG (80-95); ABG TCO2 17.7 MMOL/L (23-27); Allen Test Positive; Pt O2 Delivery Device Ventilator
[2019-12-10] MEDS: FAMOTIDINE 20 MG/2 ML VIAL IV SCH (08:09)
[2019-12-10] MEDS: ZINC SULFATE 220 MG CAPSULE PO SCH (08:10)
[2019-12-10 09:51] LABS: Band Neutrophils 5 % (0-10); Eosinophils 1 % (0-10); Hypochromasia 2+; Lymphocytes 1 % (20-55); Myelocytes 1 %; Platelet Estimate Increased; Polychromasia Slight; Segmented Neutrophils 87 % (50-85); Spherocytes 2+; Total Cells Counted 100
[2019-12-10] MEDS: MULTIVITAMIN LIQUID (CENTRUM) 60 ML BOTTLE PO SCH (12:03)
[2019-12-10] MEDS: MEROPENEM 500 MG in SODIUM CHLORIDE 0.9% 100 ML IV SCH (12:06)
[2019-12-10] MEDS: SODIUM CHLORIDE 23.4% CONC INJ 38.5 MEQ, SODIUM BICARB INJ 100 MEQ in STERILE WATER INJ... IV SCH (15:29)
[2019-12-10] MEDS: ROCURONIUM 500 MG in SODIUM CHLORIDE 0.9% 500 ML IV PRN (16:43)
[2019-12-11] MEDS: MEROPENEM 500 MG in SODIUM CHLORIDE 0.9% 100 ML IV SCH ×3 (00:04→23:01)
[2019-12-11] MEDS: ROCURONIUM 500 MG in SODIUM CHLORIDE 0.9% 500 ML IV PRN ×3 (00:40→20:00)
[2019-12-11] MEDS: INSULIN REGULAR 100 UNIT/ML SUBCUT SCH ×5 (00:44→23:46)
[2019-12-11] MEDS: SODIUM CHLORIDE 23.4% CONC INJ 38.5 MEQ, SODIUM BICARB INJ 100 MEQ in STERILE WATER INJ... IV SCH ×2 (00:45→05:21)
[2019-12-11] MEDS: fentaNYL INJ 1,250 MCG in SODIUM CHLORIDE 0.9% 225 ML IV PRN ×6 (01:43→23:00)
[2019-12-11] MEDS ORDERED: HEPARIN 5,000 UNIT/1 ML VIAL IV ONE (02:55)
[2019-12-11 04:38] LABS: ABG Base Excess -9.7 MMOL/L (-2.5-2.5); ABG HCO3 16.4 MMOL/L (20-26); ABG Oxygen Saturation 85.1 % (95-100); ABG PO2 62.9 MM HG (80-95); ABG TCO2 17.8 MMOL/L (23-27); Allen Test Positive; Pt O2 Delivery Device Ventilator
[2019-12-11 04:44] LABS: ABG PH 7.176 (7.35-7.45)
[2019-12-11] MEDS: HEPARIN DRIP 25,000 UNITS/500 ML PREMIX IV SCH ×3 (07:15→20:59)
[2019-12-11 07:40] LABS: Basophils # 0.3 10*3/uL (0.0-0.2); Basophils % 0.9 % (0.0-0.8); Hematocrit 27.3 VOL% (35.7-47.0); Hemoglobin 7.9 GM/DL (12.0-16.0); Immature Granulocytes % 10.9 %; Immature Granulocytes Absolute 3.37 #; Lymphocytes # 1.8 10*3/uL (1.4-4.0); Lymphocytes % 5.7 % (21.3-54.2); Mean Corpuscular HGB Conc 28.9 GM/DL (32-36); Mean Corpuscular Volume 88.9 FL (87-102); Mean Platelet Volume 12.4 FL (9.6-12.0); Monocytes % 6.1 % (1.7-12.7); NRBC # 0.42 10*3/uL; Neutrophils % 76.4 % (38.7-73.9); Platelet Count 369 T/CUMM (130-400); Red Blood Count 3.07 MC/CUMM (3.8-5.5); Red Cell Distribution Width 15.1 % (9.3-17.3); White Blood Count 30.8 T/CUMM (4-12)
[2019-12-11 07:54] LABS: Calcium 8.5 MG/DL (8.5-10.1)
[2019-12-11] MEDS: MULTIVITAMIN LIQUID (CENTRUM) 60 ML BOTTLE PO SCH (08:12)
[2019-12-11] MEDS: FAMOTIDINE 20 MG/2 ML VIAL IV SCH (08:12)
[2019-12-11] MEDS: SODIUM CHLORIDE 23.4% CONC INJ 38.5 MEQ, SODIUM BICARB INJ 150 MEQ in STERILE WATER INJ... IV SCH ×2 (12:01→23:45)
[2019-12-11 12:16] LABS: Allen Test Positive; Pt O2 Delivery Device Ventilator
[2019-12-11 12:18] LABS: ABG PCO2 54.3 MM HG (35-48); ABG PO2 74.3 MM HG (80-95); ABG TCO2 18.8 MMOL/L (23-27)
[2019-12-11 12:19] LABS: ABG PH 7.164 (7.35-7.45)
[2019-12-11 12:34] LABS: INR 1.1; PT Patient Result 11.2 SECS (9.8-11.9); Partial Thromboplastin Time 64.4 SECS (23.9-33.8)
[2019-12-11 13:00] LABS: Band Neutrophils 1 % (0-10); Eosinophils 1 % (0-10); Lymphocytes 3 % (20-55); Metamyelocytes 3 %; Myelocytes 4 %; Segmented Neutrophils 88 % (50-85); Total Cells Counted 100
[2019-12-11 13:01] LABS: Anisocytosis 2+; Hypochromasia Slight; Microcytosis Slight; Polychromasia 1+
[2019-12-11 13:02] LABS: Platelet Estimate Normal
[2019-12-12] MEDS: fentaNYL INJ 1,250 MCG in SODIUM CHLORIDE 0.9% 225 ML IV PRN ×4 (04:10→21:02)
[2019-12-12 04:56] LABS: ABG Base Excess -4.1 MMOL/L (-2.5-2.5); ABG HCO3 20.8 MMOL/L (20-26); ABG Oxygen Saturation 80.7 % (95-100); ABG PCO2 48.8 MM HG (35-48); ABG PH 7.275 (7.35-7.45); ABG PO2 54.4 MM HG (80-95); ABG TCO2 21.6 MMOL/L (23-27); Allen Test Positive; Pt O2 Delivery Device Ventilator
[2019-12-12 05:06] LABS: Basophils # 0.2 10*3/uL (0.0-0.2); Basophils % 0.5 % (0.0-0.8); Eosinophils # 0.1 10*3/uL (0.0-0.87); Eosinophils % 0.4 % (0.00-10.9); Hematocrit 24.9 VOL% (35.7-47.0); Hemoglobin 7.8 GM/DL (12.0-16.0); Immature Granulocytes % 12.8 %; Immature Granulocytes Absolute 4.01 #; Lymphocytes # 2.1 10*3/uL (1.4-4.0); Lymphocytes % 6.6 % (21.3-54.2); Mean Corpuscular HGB Conc 31.3 GM/DL (32-36); Mean Platelet Volume 12.1 FL (9.6-12.0); Monocytes % 5.9 % (1.7-12.7); Neutrophils % 73.8 % (38.7-73.9); Platelet Count 367 T/CUMM (130-400); White Blood Count 31.4 T/CUMM (4-12)
[2019-12-12 05:27] LABS: Band Neutrophils 5 % (0-10); Eosinophils 3 % (0-10); Hypochromasia 1+; Lymphocytes 7 % (20-55); Platelet Estimate Adequate; Segmented Neutrophils 83 % (50-85); Total Cells Counted 100
[2019-12-12 05:28] LABS: Microcytosis Slight
[2019-12-12 05:49] LABS: Calcium 8.3 MG/DL (8.5-10.1); Osmolality,Calculated 296.5 MOS/KG (273-304)
[2019-12-12] MEDS: INSULIN REGULAR 100 UNIT/ML SUBCUT SCH ×3 (06:04→18:01)
[2019-12-12] MEDS: POTASSIUM CHLORIDE 20 MEQ/15 ML UDCUP PER TUBE PRN ×4 (06:44→15:30)
[2019-12-12] MEDS: HEPARIN DRIP 25,000 UNITS/500 ML PREMIX IV SCH ×3 (06:45→21:03)
[2019-12-12] MEDS: MULTIVITAMIN LIQUID (CENTRUM) 60 ML BOTTLE PO SCH (08:32)
[2019-12-12] MEDS: FAMOTIDINE 20 MG/2 ML VIAL IV SCH (08:32)
[2019-12-12] MEDS: ROCURONIUM 500 MG in SODIUM CHLORIDE 0.9% 500 ML IV PRN ×2 (09:32→22:42)
[2019-12-12] MEDS: MEROPENEM 500 MG in SODIUM CHLORIDE 0.9% 100 ML IV SCH ×2 (12:02→23:27)
[2019-12-12] MEDS: SODIUM CHLORIDE 23.4% CONC INJ 38.5 MEQ, SODIUM BICARB INJ 150 MEQ in STERILE WATER INJ... IV SCH ×2 (12:14→21:51)
[2019-12-12] MEDS: ACETAMINOPHEN 325 MG/10.15 ML UDCUP NG PRN (21:51)
[2019-12-12] MEDS ORDERED: FUROSEMIDE 40 MG/4 ML VIAL IV ONE (22:16)
[2019-12-12 23:41] LABS: ABG Base Excess -4.2 MMOL/L (-2.5-2.5); ABG HCO3 20.6 MMOL/L (20-26); ABG Oxygen Saturation 77.5 % (95-100); ABG PCO2 66.4 MM HG (35-48); ABG PO2 56.6 MM HG (80-95); ABG TCO2 23.9 MMOL/L (23-27)
[2019-12-12 23:48] LABS: ABG PH 7.182 (7.35-7.45)
[2019-12-13] MEDS: INSULIN REGULAR 100 UNIT/ML SUBCUT SCH ×4 (00:17→17:43)
[2019-12-13] MEDS: SODIUM CHLORIDE 23.4% CONC INJ 38.5 MEQ, SODIUM BICARB INJ 150 MEQ in STERILE WATER INJ... IV SCH ×2 (00:22→11:51)
[2019-12-13] MEDS: fentaNYL INJ 1,250 MCG in SODIUM CHLORIDE 0.9% 225 ML IV PRN (01:45)
[2019-12-13] MEDS: fentaNYL INJ 2,500 MCG in SODIUM CHLORIDE 0.9% 500 ML IV PRN ×3 (01:58→16:50)
[2019-12-13 02:28] LABS: ABG Base Excess -3.9 MMOL/L (-2.5-2.5); ABG HCO3 20.9 MMOL/L (20-26); ABG Oxygen Saturation 76.3 % (95-100); ABG PCO2 49.3 MM HG (35-48); ABG PH 7.274 (7.35-7.45); ABG PO2 50.5 MM HG (80-95); ABG TCO2 21.8 MMOL/L (23-27); Allen Test Positive; Pt O2 Delivery Device Ventilator
[2019-12-13 04:44] LABS: Basophils # 0.3 10*3/uL (0.0-0.2); Basophils % 0.9 % (0.0-0.8); Hematocrit 24.5 VOL% (35.7-47.0); Hemoglobin 7.2 GM/DL (12.0-16.0); Immature Granulocytes % 13.9 %; Lymphocytes # 2.8 10*3/uL (1.4-4.0); Lymphocytes % 8.2 % (21.3-54.2); Mean Corpuscular HGB Conc 29.4 GM/DL (32-36); Mean Corpuscular Volume 86.6 FL (87-102); Mean Platelet Volume 11.7 FL (9.6-12.0); Monocytes % 7.2 % (1.7-12.7); NRBC # 1.42 10*3/uL; Neutrophils % 69.8 % (38.7-73.9); Platelet Count 395 T/CUMM (130-400); Red Blood Count 2.83 MC/CUMM (3.8-5.5); Red Cell Distribution Width 15.4 % (9.3-17.3); White Blood Count 34.4 T/CUMM (4-12)
[2019-12-13 05:05] LABS: Band Neutrophils 7 % (0-10); Hypochromasia 2+; Lymphocytes 11 % (20-55); Microcytosis Slight; Myelocytes 1 %; Nucleated Red Blood Cells 4 (0-5); Platelet Estimate Adequate; Segmented Neutrophils 75 % (50-85); Total Cells Counted 100
[2019-12-13 05:07] LABS: Calcium 8.1 MG/DL (8.5-10.1); Osmolality,Calculated 299.4 MOS/KG (273-304)
[2019-12-13 05:22] LABS: ABG Base Excess -1.8 MMOL/L (-2.5-2.5); ABG HCO3 22.7 MMOL/L (20-26); ABG Oxygen Saturation 82.1 % (95-100); ABG PCO2 50.4 MM HG (35-48); ABG PH 7.299 (7.35-7.45); ABG PO2 55.6 MM HG (80-95); ABG TCO2 23.7 MMOL/L (23-27)
[2019-12-13] MEDS: HEPARIN DRIP 25,000 UNITS/500 ML PREMIX IV SCH ×3 (05:59→22:36)
[2019-12-13] MEDS: ROCURONIUM 500 MG in SODIUM CHLORIDE 0.9% 500 ML IV PRN ×3 (06:00→18:41)
[2019-12-13] MEDS: FAMOTIDINE 20 MG/2 ML VIAL IV SCH (08:21)
[2019-12-13] MEDS: MULTIVITAMIN LIQUID (CENTRUM) 60 ML BOTTLE PO SCH (08:21)
[2019-12-13] MEDS: POTASSIUM CHLORIDE 20 MEQ/15 ML UDCUP PER TUBE PRN ×3 (08:22→17:51)
[2019-12-13] MEDS: NOREPINEPHRINE 16 MG in SODIUM CHLORIDE 0.9% 234 ML IV PRN (09:45)
[2019-12-13 12:36] LABS: Apearance,Urine CLOUDY (Clear); Bacteria,Urine Occasional /HPF (Few); Bilirubin,Urine Negative (Negative); Blood, Urine Moderate mg/dL (Negative); Glucose,Urine (UA) Negative (Negative); Hyaline Casts,Urine 3 /LPF (0-3); Ketones,Urine Negative (Negative); Mucus,Urine Occasional /LPF (Occasional); Nitrite,Urine Negative (Negative); Protein,Urine Negative; RBC,Urine 32 /HPF (0-4); Squamous Epithelial Cell,Urine Occasional /HPF (0-10); Urine Color Yellow (Yellow); Urine Urobilinogen < 2.0 EU/DL (0.2-1.0); WBC,Urine 147 /HPF (0-6)
[2019-12-13] MEDS ORDERED: FUROSEMIDE 40 MG/4 ML VIAL IV ONE (12:42)
[2019-12-14] MEDS: INSULIN REGULAR 100 UNIT/ML SUBCUT SCH ×5 (00:47→23:24)
[2019-12-14] MEDS: fentaNYL INJ 2,500 MCG in SODIUM CHLORIDE 0.9% 500 ML IV PRN (00:47)
[2019-12-14] MEDS: ROCURONIUM 500 MG in SODIUM CHLORIDE 0.9% 500 ML IV PRN ×4 (01:28→21:05)
[2019-12-14 04:04] LABS: ABG Base Excess -4.7 MMOL/L (-2.5-2.5); ABG HCO3 20.5 MMOL/L (20-26); ABG Oxygen Saturation 93.4 % (95-100); ABG PCO2 57.1 MM HG (35-48); ABG PH 7.227 (7.35-7.45); ABG PO2 85.3 MM HG (80-95); ABG TCO2 21.9 MMOL/L (23-27); Allen Test Positive; Pt O2 Delivery Device Ventilator
[2019-12-14] MEDS: POTASSIUM CHLORIDE 20 MEQ/15 ML UDCUP PER TUBE PRN (05:05)
[2019-12-14 05:23] LABS: Basophils # 0.2 10*3/uL (0.0-0.2); Basophils % 0.7 % (0.0-0.8); Eosinophils # 0.1 10*3/uL (0.0-0.87); Eosinophils % 0.3 % (0.00-10.9); Hematocrit 24.9 VOL% (35.7-47.0); Hemoglobin 7.5 GM/DL (12.0-16.0); Immature Granulocytes % 19.3 %; Immature Granulocytes Absolute 6.87 #; Lymphocytes # 3.5 10*3/uL (1.4-4.0); Lymphocytes % 9.8 % (21.3-54.2); Mean Corpuscular HGB Conc 30.1 GM/DL (32-36); Mean Corpuscular Volume 86.2 FL (87-102); Mean Platelet Volume 11.9 FL (9.6-12.0); Monocytes % 8.1 % (1.7-12.7); NRBC # 3.27 10*3/uL; Neutrophils % 61.8 % (38.7-73.9); Platelet Count 440 T/CUMM (130-400); Red Blood Count 2.89 MC/CUMM (3.8-5.5); Red Cell Distribution Width 15.9 % (9.3-17.3); White Blood Count 35.6 T/CUMM (4-12)
[2019-12-14 05:39] LABS: Calcium 8.7 MG/DL (8.5-10.1); Osmolality,Calculated 300.4 MOS/KG (273-304)
[2019-12-14 05:52] LABS: Band Neutrophils 7 % (0-10); Eosinophils 1 % (0-10); Hypochromasia 2+; Lymphocytes 14 % (20-55); Myelocytes 2 %; Nucleated Red Blood Cells 9 (0-5); Platelet Estimate Adequate; Polychromasia Slight; Segmented Neutrophils 68 % (50-85); Total Cells Counted 100
[2019-12-14 05:53] LABS: Microcytosis Slight
[2019-12-14] MEDS: FAMOTIDINE 20 MG/2 ML VIAL IV SCH (08:40)
[2019-12-14] MEDS ORDERED: HEPARIN 5,000 UNIT/1 ML VIAL IV PRN (09:47)
[2019-12-14] MEDS: MULTIVITAMIN LIQUID (CENTRUM) 60 ML BOTTLE PO SCH (12:45)
[2019-12-14] MEDS: FLUCONAZOLE INJ 200 MG in PREMIX 1 EACH IV SCH (15:06)
[2019-12-14] MEDS: fentaNYL INJ 2,500 MCG in SODIUM CHLORIDE 0.9% 450 ML IV PRN ×2 (15:46→23:38)
[2019-12-14] MEDS: methylPREDNISolone SOD SUC 40 MG/1 ML VIAL IV SCH ×2 (16:20→22:53)
[2019-12-14] MEDS: HEPARIN DRIP 25,000 UNITS/500 ML PREMIX IV SCH (17:45)
[2019-12-14] MEDS: NOREPINEPHRINE 16 MG in SODIUM CHLORIDE 0.9% 234 ML IV PRN (20:19)
[2019-12-15] MEDS: HEPARIN DRIP 25,000 UNITS/500 ML PREMIX IV SCH ×2 (02:06→10:45)
[2019-12-15] MEDS: ROCURONIUM 500 MG in SODIUM CHLORIDE 0.9% 500 ML IV PRN ×3 (03:43→18:42)
[2019-12-15 04:45] LABS: Allen Test Positive; Pt O2 Delivery Device Ventilator
[2019-12-15 04:47] LABS: ABG Base Excess -6.3 MMOL/L (-2.5-2.5); ABG HCO3 19.2 MMOL/L (20-26); ABG Oxygen Saturation 96.3 % (95-100); ABG PCO2 54.5 MM HG (35-48); ABG TCO2 20.8 MMOL/L (23-27)
[2019-12-15 04:55] LABS: ABG PH 7.207 (7.35-7.45)
[2019-12-15 04:58] LABS: Basophils # 0.2 10*3/uL (0.0-0.2); Basophils % 0.5 % (0.0-0.8); Eosinophils % 0.1 % (0.00-10.9); Hematocrit 24.3 VOL% (35.7-47.0); Hemoglobin 7.2 GM/DL (12.0-16.0); Immature Granulocytes % 18.3 %; Immature Granulocytes Absolute 5.74 #; Lymphocytes # 2.4 10*3/uL (1.4-4.0); Lymphocytes % 7.8 % (21.3-54.2); Mean Corpuscular HGB Conc 29.6 GM/DL (32-36); Mean Corpuscular Volume 86.5 FL (87-102); Monocytes % 2.5 % (1.7-12.7); NRBC # 3.03 10*3/uL; Neutrophils % 70.8 % (38.7-73.9); Platelet Count 397 T/CUMM (130-400); Red Blood Count 2.81 MC/CUMM (3.8-5.5); Red Cell Distribution Width 16.1 % (9.3-17.3); White Blood Count 31.4 T/CUMM (4-12)
[2019-12-15 05:24] LABS: Calcium 8.6 MG/DL (8.5-10.1); Osmolality,Calculated 309.3 MOS/KG (273-304)
[2019-12-15 05:45] LABS: Band Neutrophils 2 % (0-10); Eosinophils 3 % (0-10); Lymphocytes 12 % (20-55); Nucleated Red Blood Cells 13 (0-5); Segmented Neutrophils 78 % (50-85); Total Cells Counted 100
[2019-12-15 05:46] LABS: Hypochromasia 1+; Microcytosis 1+; Platelet Estimate Adequate
[2019-12-15] MEDS: INSULIN REGULAR 100 UNIT/ML SUBCUT SCH ×4 (05:51→23:42)
[2019-12-15] MEDS: methylPREDNISolone SOD SUC 40 MG/1 ML VIAL IV SCH ×3 (06:04→23:31)
[2019-12-15] MEDS: fentaNYL INJ 2,500 MCG in SODIUM CHLORIDE 0.9% 450 ML IV PRN ×3 (07:32→22:42)
[2019-12-15] MEDS: MULTIVITAMIN LIQUID (CENTRUM) 60 ML BOTTLE PO SCH (08:05)
[2019-12-15] MEDS: FAMOTIDINE 20 MG/2 ML VIAL IV SCH (08:38)
[2019-12-15] MEDS: FLUCONAZOLE INJ 200 MG in PREMIX 1 EACH IV SCH (11:50)
[2019-12-16] MEDS: HEPARIN DRIP 25,000 UNITS/500 ML PREMIX IV SCH ×2 (02:49→05:09)
[2019-12-16] MEDS: ROCURONIUM 500 MG in SODIUM CHLORIDE 0.9% 500 ML IV PRN ×2 (04:00→15:10)
[2019-12-16 04:52] LABS: ABG Base Excess -6.6 MMOL/L (-2.5-2.5); ABG Oxygen Saturation 98.4 % (95-100); ABG PCO2 51.9 MM HG (35-48); ABG PH 7.215 (7.35-7.45); ABG TCO2 20.4 MMOL/L (23-27); Allen Test Positive; Pt O2 Delivery Device Ventilator
[2019-12-16] MEDS: INSULIN REGULAR 100 UNIT/ML SUBCUT SCH ×4 (05:09→23:13)
[2019-12-16 05:54] LABS: Basophils # 0.1 10*3/uL (0.0-0.2); Basophils % 0.4 % (0.0-0.8); Eosinophils % 0.1 % (0.00-10.9); Hematocrit 20.8 VOL% (35.7-47.0); Immature Granulocytes % 11.9 %; Immature Granulocytes Absolute 2.26 #; Lymphocytes # 1.9 10*3/uL (1.4-4.0); Lymphocytes % 9.7 % (21.3-54.2); Mean Corpuscular HGB Conc 29.3 GM/DL (32-36); Mean Corpuscular Volume 86.7 FL (87-102); Mean Platelet Volume 12.1 FL (9.6-12.0); Monocytes % 5.3 % (1.7-12.7); Neutrophils % 72.6 % (38.7-73.9); Platelet Count 333 T/CUMM (130-400); Red Cell Distribution Width 16.6 % (9.3-17.3)
[2019-12-16] MEDS: methylPREDNISolone SOD SUC 40 MG/1 ML VIAL IV SCH ×3 (06:00→23:10)
[2019-12-16 06:07] LABS: Hemoglobin 6.1 GM/DL (12.0-16.0)
[2019-12-16 06:22] LABS: Calcium 8.6 MG/DL (8.5-10.1); Osmolality,Calculated 312.3 MOS/KG (273-304)
[2019-12-16 06:44] LABS: Band Neutrophils 18 % (0-10); Lymphocytes 10 % (20-55); Metamyelocytes 2 %; Myelocytes 2 %; Nucleated Red Blood Cells 18 (0-5); Platelet Estimate Normal; Segmented Neutrophils 64 % (50-85); Total Cells Counted 100
[2019-12-16 06:45] LABS: Anisocytosis 1+; Giant Platelets Few
[2019-12-16] MEDS ORDERED: SODIUM CHLORIDE 0.9% 1,000 ML IV PRN (06:49)
[2019-12-16] MEDS: fentaNYL INJ 2,500 MCG in SODIUM CHLORIDE 0.9% 450 ML IV PRN ×3 (07:18→23:53)
[2019-12-16] MEDS: FAMOTIDINE 20 MG/2 ML VIAL IV SCH (09:06)
[2019-12-16] MEDS: MULTIVITAMIN LIQUID (CENTRUM) 60 ML BOTTLE PO SCH (09:07)
[2019-12-16] MEDS: FUROSEMIDE 100 MG/10 ML VIAL IV SCH ×2 (09:08→16:28)
[2019-12-16] MEDS: MENTHOL/ZINC OXIDE OINT 71 GM JAR TOP SCH ×2 (14:10→20:58)
[2019-12-16] MEDS: FLUCONAZOLE INJ 200 MG in PREMIX 1 EACH IV SCH (17:17)
[2019-12-17] MEDS: ROCURONIUM 500 MG in SODIUM CHLORIDE 0.9% 500 ML IV PRN ×3 (03:00→16:49)
[2019-12-17] MEDS: INSULIN REGULAR 100 UNIT/ML SUBCUT SCH ×4 (05:37→23:50)
[2019-12-17] MEDS: methylPREDNISolone SOD SUC 40 MG/1 ML VIAL IV SCH ×3 (06:07→23:50)
[2019-12-17] MEDS: FUROSEMIDE 100 MG/10 ML VIAL IV SCH ×2 (08:08→15:32)
[2019-12-17] MEDS: FAMOTIDINE 20 MG/2 ML VIAL IV SCH (08:08)
[2019-12-17] MEDS: MENTHOL/ZINC OXIDE OINT 71 GM JAR TOP SCH ×2 (08:08→21:17)
[2019-12-17] MEDS: MULTIVITAMIN LIQUID (CENTRUM) 60 ML BOTTLE PO SCH (08:08)
[2019-12-17] MEDS: fentaNYL INJ 2,500 MCG in SODIUM CHLORIDE 0.9% 450 ML IV PRN ×3 (08:09→23:30)
[2019-12-17 08:57] LABS: Basophils # 0.1 10*3/uL (0.0-0.2); Basophils % 0.5 % (0.0-0.8); Hematocrit 28.7 VOL% (35.7-47.0); Hemoglobin 8.6 GM/DL (12.0-16.0); Immature Granulocytes Absolute 1.58 #; Lymphocytes # 1.9 10*3/uL (1.4-4.0); Lymphocytes % 10.8 % (21.3-54.2); Mean Corpuscular Volume 87.2 FL (87-102); Mean Platelet Volume 11.2 FL (9.6-12.0); Monocytes % 6.1 % (1.7-12.7); NRBC # 3.03 10*3/uL; Neutrophils % 73.6 % (38.7-73.9); Platelet Count 300 T/CUMM (130-400); Red Blood Count 3.29 MC/CUMM (3.8-5.5); Red Cell Distribution Width 17.5 % (9.3-17.3); White Blood Count 17.6 T/CUMM (4-12)
[2019-12-17 09:27] LABS: Band Neutrophils 4 % (0-10); Lymphocytes 14 % (20-55); Nucleated Red Blood Cells 20 (0-5); Segmented Neutrophils 79 % (50-85); Total Cells Counted 100
[2019-12-17 09:28] LABS: Hypochromasia 1+; Microcytosis Slight; Platelet Estimate Adequate
[2019-12-17 09:34] LABS: Calcium 8.1 MG/DL (8.5-10.1); Osmolality,Calculated 316.3 MOS/KG (273-304)
[2019-12-17 10:39] LABS: ABG Base Excess -7.2 MMOL/L (-2.5-2.5); ABG HCO3 18.5 MMOL/L (20-26); ABG Oxygen Saturation 95.7 % (95-100); ABG PH 7.271 (7.35-7.45); ABG PO2 89.1 MM HG (80-95); Pt O2 Delivery Device Ventilator
[2019-12-17] MEDS: FLUCONAZOLE INJ 200 MG in PREMIX 1 EACH IV SCH (15:37)
[2019-12-18] MEDS: ROCURONIUM 500 MG in SODIUM CHLORIDE 0.9% 500 ML IV PRN ×2 (00:20→07:02)
[2019-12-18 03:44] LABS: ABG Base Excess -6.3 MMOL/L (-2.5-2.5); ABG Oxygen Saturation 84.4 % (95-100); ABG PCO2 45.6 MM HG (35-48); ABG PH 7.263 (7.35-7.45); ABG PO2 59.1 MM HG (80-95); ABG TCO2 19.2 MMOL/L (23-27); Allen Test Positive; Pt O2 Delivery Device Ventilator
[2019-12-18 04:48] LABS: Basophils # 0.1 10*3/uL (0.0-0.2); Basophils % 0.5 % (0.0-0.8); Eosinophils % 0.1 % (0.00-10.9); Hematocrit 29.2 VOL% (35.7-47.0); Hemoglobin 8.9 GM/DL (12.0-16.0); Immature Granulocytes Absolute 1.34 #; Lymphocytes # 1.7 10*3/uL (1.4-4.0); Lymphocytes % 11.7 % (21.3-54.2); Mean Corpuscular HGB Conc 30.5 GM/DL (32-36); Mean Corpuscular Volume 85.9 FL (87-102); Mean Platelet Volume 11.4 FL (9.6-12.0); Monocytes % 5.5 % (1.7-12.7); NRBC # 2.54 10*3/uL; Neutrophils % 73.2 % (38.7-73.9); Platelet Count 275 T/CUMM (130-400); Red Cell Distribution Width 17.9 % (9.3-17.3); White Blood Count 14.9 T/CUMM (4-12)
[2019-12-18 05:12] LABS: Band Neutrophils 6 % (0-10); Hypochromasia 1+; Lymphocytes 17 % (20-55); Metamyelocytes 1 %; Microcytosis Slight; Myelocytes 1 %; Nucleated Red Blood Cells 19 (0-5); Platelet Estimate Adequate; Segmented Neutrophils 73 % (50-85); Total Cells Counted 100
[2019-12-18 05:41] LABS: Calcium 7.9 MG/DL (8.5-10.1)
[2019-12-18] MEDS: INSULIN REGULAR 100 UNIT/ML SUBCUT SCH ×4 (06:53→23:55)
[2019-12-18] MEDS: methylPREDNISolone SOD SUC 40 MG/1 ML VIAL IV SCH ×2 (06:53→20:43)
[2019-12-18] MEDS: FUROSEMIDE 100 MG/10 ML VIAL IV SCH ×2 (09:03→16:37)
[2019-12-18] MEDS: MENTHOL/ZINC OXIDE OINT 71 GM JAR TOP SCH ×2 (09:05→20:42)
[2019-12-18] MEDS: MULTIVITAMIN LIQUID (CENTRUM) 60 ML BOTTLE PO SCH (09:05)
[2019-12-18] MEDS: FAMOTIDINE 20 MG/2 ML VIAL IV SCH (09:05)
[2019-12-18] MEDS: fentaNYL INJ 2,500 MCG in SODIUM CHLORIDE 0.9% 450 ML IV PRN ×2 (09:06→16:58)
[2019-12-18] MEDS: HEPARIN DRIP 25,000 UNITS/500 ML PREMIX IV SCH (10:18)
[2019-12-18] MEDS: CISATRACURIUM 200 MG in SODIUM CHLORIDE 0.9% 180 ML IV PRN ×2 (14:28→21:01)
[2019-12-18] MEDS: SILDENAFIL 20 MG TABLET PO SCH ×2 (16:37→20:44)
[2019-12-18] MEDS: FLUCONAZOLE INJ 200 MG in PREMIX 1 EACH IV SCH (17:03)
[2019-12-19] MEDS: fentaNYL INJ 2,500 MCG in SODIUM CHLORIDE 0.9% 450 ML IV PRN ×3 (00:49→17:13)
[2019-12-19] MEDS: HEPARIN DRIP 25,000 UNITS/500 ML PREMIX IV SCH ×3 (02:30→23:26)
[2019-12-19 03:54] LABS: ABG Base Excess -4.6 MMOL/L (-2.5-2.5); ABG HCO3 20.6 MMOL/L (20-26); ABG Oxygen Saturation 97.5 % (95-100); ABG PCO2 42.3 MM HG (35-48); ABG PH 7.313 (7.35-7.45); ABG TCO2 19.8 MMOL/L (23-27); Allen Test Positive; Pt O2 Delivery Device Ventilator
[2019-12-19] MEDS: CISATRACURIUM 200 MG in SODIUM CHLORIDE 0.9% 180 ML IV PRN ×2 (04:19→12:33)
[2019-12-19 04:27] LABS: Basophils # 0.1 10*3/uL (0.0-0.2); Basophils % 0.5 % (0.0-0.8); Eosinophils % 0.1 % (0.00-10.9); Hematocrit 30.3 VOL% (35.7-47.0); Hemoglobin 9.4 GM/DL (12.0-16.0); Immature Granulocytes % 8.2 %; Immature Granulocytes Absolute 1.36 #; Lymphocytes # 1.5 10*3/uL (1.4-4.0); Lymphocytes % 9.1 % (21.3-54.2); Mean Corpuscular Volume 83.5 FL (87-102); Mean Platelet Volume 11.9 FL (9.6-12.0); Monocytes % 5.7 % (1.7-12.7); NRBC # 1.58 10*3/uL; Neutrophils % 76.4 % (38.7-73.9); Platelet Count 275 T/CUMM (130-400); Red Blood Count 3.63 MC/CUMM (3.8-5.5); Red Cell Distribution Width 18.5 % (9.3-17.3); White Blood Count 16.6 T/CUMM (4-12)
[2019-12-19 04:41] LABS: Calcium 8.1 MG/DL (8.5-10.1)
[2019-12-19] MEDS: POTASSIUM CHLORIDE 20 MEQ/15 ML UDCUP PER TUBE PRN ×4 (04:47→12:30)
[2019-12-19 04:50] LABS: Band Neutrophils 6 % (0-10); Hypochromasia Slight; Lymphocytes 6 % (20-55); Myelocytes 1 %; Nucleated Red Blood Cells 14 (0-5); Ovalocytes Slight; Platelet Estimate Adequate; Segmented Neutrophils 84 % (50-85); Total Cells Counted 100
[2019-12-19 04:51] LABS: Microcytosis Slight
[2019-12-19] MEDS: MAGNESIUM SULF RIDER 2 GM in PREMIX 1 EACH IV PRN (05:35)
[2019-12-19] MEDS: INSULIN REGULAR 100 UNIT/ML SUBCUT SCH ×4 (05:36→18:10)
[2019-12-19] MEDS: methylPREDNISolone SOD SUC 40 MG/1 ML VIAL IV SCH ×2 (09:49→20:09)
[2019-12-19] MEDS: FUROSEMIDE 100 MG/10 ML VIAL IV SCH ×2 (09:49→16:22)
[2019-12-19] MEDS: FAMOTIDINE 20 MG/2 ML VIAL IV SCH (09:49)
[2019-12-19] MEDS: SILDENAFIL 20 MG TABLET PO SCH ×3 (09:50→20:09)
[2019-12-19] MEDS: MULTIVITAMIN LIQUID (CENTRUM) 60 ML BOTTLE PO SCH (09:50)
[2019-12-19] MEDS: MENTHOL/ZINC OXIDE OINT 71 GM JAR TOP SCH ×2 (09:50→20:09)
[2019-12-19] MEDS: FLUCONAZOLE INJ 200 MG in PREMIX 1 EACH IV SCH (16:22)
[2019-12-20] MEDS: INSULIN REGULAR 100 UNIT/ML SUBCUT SCH ×5 (00:11→23:57)
[2019-12-20] MEDS: fentaNYL INJ 2,500 MCG in SODIUM CHLORIDE 0.9% 450 ML IV PRN ×3 (01:27→13:55)
[2019-12-20 04:49] LABS: ABG Base Excess -1.7 MMOL/L (-2.5-2.5); ABG Oxygen Saturation 98.8 % (95-100); ABG PCO2 37.9 MM HG (35-48); ABG TCO2 20.8 MMOL/L (23-27); Allen Test Positive; Pt O2 Delivery Device Ventilator
[2019-12-20 05:12] LABS: Basophils % 0.2 % (0.0-0.8); Eosinophils % 0.1 % (0.00-10.9); Hematocrit 30.3 VOL% (35.7-47.0); Hemoglobin 9.5 GM/DL (12.0-16.0); Immature Granulocytes Absolute 0.96 #; Lymphocytes # 1.1 10*3/uL (1.4-4.0); Lymphocytes % 6.8 % (21.3-54.2); Mean Corpuscular HGB Conc 31.4 GM/DL (32-36); Mean Corpuscular Volume 82.8 FL (87-102); Mean Platelet Volume 11.2 FL (9.6-12.0); Monocytes % 4.9 % (1.7-12.7); NRBC # 0.86 10*3/uL; Platelet Count 270 T/CUMM (130-400); Red Blood Count 3.66 MC/CUMM (3.8-5.5); Red Cell Distribution Width 18.6 % (9.3-17.3); White Blood Count 16.1 T/CUMM (4-12)
[2019-12-20 05:30] LABS: Calcium 8.2 MG/DL (8.5-10.1); Osmolality,Calculated 331.8 MOS/KG (273-304)
[2019-12-20 05:38] LABS: Band Neutrophils 1 % (0-10); Hypochromasia 1+; Lymphocytes 8 % (20-55); Nucleated Red Blood Cells 8 (0-5); Platelet Estimate Adequate; Segmented Neutrophils 87 % (50-85); Total Cells Counted 100
[2019-12-20 05:39] LABS: Microcytosis 1+
[2019-12-20] MEDS: POTASSIUM CHLORIDE 20 MEQ/15 ML UDCUP PER TUBE PRN ×2 (08:15→15:50)
[2019-12-20] MEDS: MULTIVITAMIN LIQUID (CENTRUM) 60 ML BOTTLE PO SCH (08:15)
[2019-12-20] MEDS: SILDENAFIL 20 MG TABLET PO SCH ×3 (08:15→20:41)
[2019-12-20] MEDS: FUROSEMIDE 100 MG/10 ML VIAL IV SCH ×2 (08:15→15:50)
[2019-12-20] MEDS: methylPREDNISolone SOD SUC 40 MG/1 ML VIAL IV SCH ×2 (08:15→20:41)
[2019-12-20] MEDS: MENTHOL/ZINC OXIDE OINT 71 GM JAR TOP SCH ×2 (08:15→20:41)
[2019-12-20] MEDS: FAMOTIDINE 20 MG/2 ML VIAL IV SCH (08:15)
[2019-12-20] MEDS ORDERED: fentaNYL INJ 2,500 MCG in SODIUM CHLORIDE 0.9% 75 ML IV PRN (09:59)
[2019-12-20] MEDS: HEPARIN DRIP 25,000 UNITS/500 ML PREMIX IV SCH ×2 (13:18→20:41)
[2019-12-20] MEDS: FLUCONAZOLE INJ 200 MG in PREMIX 1 EACH IV SCH (16:24)
[2019-12-21 04:37] LABS: Basophils # 0.1 10*3/uL (0.0-0.2); Basophils % 0.3 % (0.0-0.8); Immature Granulocytes % 4.5 %; Immature Granulocytes Absolute 1.01 #; Lymphocytes % 4.6 % (21.3-54.2); Mean Corpuscular HGB Conc 31.3 GM/DL (32-36); Mean Corpuscular Volume 84.9 FL (87-102); Mean Platelet Volume 11.4 FL (9.6-12.0); Monocytes % 3.4 % (1.7-12.7); NRBC # 0.35 10*3/uL; Neutrophils % 87.2 % (38.7-73.9); Platelet Count 265 T/CUMM (130-400); Red Blood Count 3.77 MC/CUMM (3.8-5.5); Red Cell Distribution Width 19.9 % (9.3-17.3); White Blood Count 22.4 T/CUMM (4-12)
[2019-12-21 04:51] LABS: Calcium 8.4 MG/DL (8.5-10.1); Osmolality,Calculated 344.4 MOS/KG (273-304)
[2019-12-21 05:12] LABS: ABG HCO3 25.3 MMOL/L (20-26); ABG Oxygen Saturation 97.7 % (95-100); ABG PCO2 41.1 MM HG (35-48); ABG PH 7.405 (7.35-7.45); ABG TCO2 23.4 MMOL/L (23-27); Allen Test Positive; Pt O2 Delivery Device Ventilator
[2019-12-21] MEDS: INSULIN REGULAR 100 UNIT/ML SUBCUT SCH ×3 (05:23→18:01)
[2019-12-21 06:15] LABS: Band Neutrophils 1 % (0-10); Hypochromasia 1+; Lymphocytes 5 % (20-55); Microcytosis 1+; Platelet Estimate Adequate; Segmented Neutrophils 90 % (50-85); Total Cells Counted 100
[2019-12-21] MEDS: SILDENAFIL 20 MG TABLET PO SCH ×3 (08:25→21:00)
[2019-12-21] MEDS: methylPREDNISolone SOD SUC 40 MG/1 ML VIAL IV SCH (08:25)
[2019-12-21] MEDS: FAMOTIDINE 20 MG/2 ML VIAL IV SCH (08:27)
[2019-12-21] MEDS: FUROSEMIDE 100 MG/10 ML VIAL IV SCH ×2 (08:28→10:12)
[2019-12-21] MEDS: MENTHOL/ZINC OXIDE OINT 71 GM JAR TOP SCH ×2 (08:29→21:00)
[2019-12-21] MEDS: MULTIVITAMIN LIQUID (CENTRUM) 60 ML BOTTLE PO SCH (08:29)
[2019-12-21] MEDS: INSULIN GLARGINE 100 UNIT/ML SUBCUT SCH (11:01)
[2019-12-21] MEDS: HEPARIN DRIP 25,000 UNITS/500 ML PREMIX IV SCH ×2 (11:54→18:43)
[2019-12-21] MEDS ORDERED: hydrALAZINE 20 MG/1 ML VIAL IV PRN (15:05)
[2019-12-21] MEDS: FLUCONAZOLE INJ 200 MG in PREMIX 1 EACH IV SCH (15:36)
[2019-12-21] MEDS: POTASSIUM CHLORIDE 20 MEQ/15 ML UDCUP PER TUBE PRN ×3 (15:52→21:02)
[2019-12-21] MEDS: amLODIPine 10 MG TABLET PER TUBE SCH (15:52)
[2019-12-21] MEDS: METOPROLOL TARTRATE 5 MG/5 ML VIAL IV SCH ×3 (21:00→21:24)
[2019-12-22] MEDS: METOPROLOL TARTRATE 5 MG/5 ML VIAL IV SCH ×5 (00:16→23:04)
[2019-12-22] MEDS: INSULIN REGULAR 100 UNIT/ML SUBCUT SCH ×5 (00:16→23:17)
[2019-12-22] MEDS: ACETAMINOPHEN 325 MG/10.15 ML UDCUP NG PRN ×4 (00:16→21:06)
[2019-12-22 04:05] LABS: ABG Base Excess 1.7 MMOL/L (-2.5-2.5); ABG HCO3 25.8 MMOL/L (20-26); ABG Oxygen Saturation 93.6 % (95-100); ABG PCO2 47.8 MM HG (35-48); ABG TCO2 24.6 MMOL/L (23-27); Allen Test Negative; Pt O2 Delivery Device Ventilator
[2019-12-22 04:16] LABS: Basophils # 0.1 10*3/uL (0.0-0.2); Basophils % 0.3 % (0.0-0.8); Eosinophils % 0.1 % (0.00-10.9); Hematocrit 38.8 VOL% (35.7-47.0); Hemoglobin 11.7 GM/DL (12.0-16.0); Immature Granulocytes % 3.6 %; Lymphocytes # 1.5 10*3/uL (1.4-4.0); Lymphocytes % 3.8 % (21.3-54.2); Mean Corpuscular HGB Conc 30.2 GM/DL (32-36); Mean Corpuscular Volume 87.8 FL (87-102); Mean Platelet Volume 11.8 FL (9.6-12.0); NRBC # 1.19 10*3/uL; Neutrophils % 87.2 % (38.7-73.9); Platelet Count 293 T/CUMM (130-400); Red Blood Count 4.42 MC/CUMM (3.8-5.5); Red Cell Distribution Width 21.3 % (9.3-17.3); White Blood Count 38.5 T/CUMM (4-12)
[2019-12-22 04:34] LABS: Bilirubin,Total 1.2 MG/DL (0.2-1.0); Calcium 8.7 MG/DL (8.5-10.1); Osmolality,Calculated 343.6 MOS/KG (273-304); Total Protein 6.8 G/DL (6.4-8.3)
[2019-12-22] MEDS: POTASSIUM CHLORIDE 20 MEQ/15 ML UDCUP PER TUBE PRN (05:40)
[2019-12-22 05:47] LABS: Band Neutrophils 1 % (0-10); Lymphocytes 3 % (20-55); Myelocytes 3 %; Nucleated Red Blood Cells 1 (0-5); Segmented Neutrophils 86 % (50-85)
[2019-12-22 05:48] LABS: Hypochromasia 1+; Platelet Estimate Normal; Polychromasia 1+; Total Cells Counted 100
[2019-12-22] MEDS: FUROSEMIDE 100 MG/10 ML VIAL IV SCH (08:00)
[2019-12-22] MEDS: amLODIPine 10 MG TABLET PER TUBE SCH (08:00)
[2019-12-22] MEDS: SILDENAFIL 20 MG TABLET PO SCH ×3 (08:00→20:57)
[2019-12-22] MEDS: MENTHOL/ZINC OXIDE OINT 71 GM JAR TOP SCH ×2 (08:01→20:57)
[2019-12-22] MEDS: INSULIN GLARGINE 100 UNIT/ML SUBCUT SCH (08:01)
[2019-12-22] MEDS: MULTIVITAMIN LIQUID (CENTRUM) 60 ML BOTTLE PO SCH (08:01)
[2019-12-22] MEDS: FAMOTIDINE 20 MG/2 ML VIAL IV SCH (08:06)
[2019-12-22] MEDS: methylPREDNISolone SOD SUC 40 MG/1 ML VIAL IV SCH (08:09)
[2019-12-22] MEDS: HEPARIN DRIP 25,000 UNITS/500 ML PREMIX IV SCH ×2 (11:38→17:34)
[2019-12-22] MEDS ORDERED: TOBRAMYCIN INJ 300 MG in SODIUM CHLORIDE 0.9% 100 ML IV ONE (12:00)
[2019-12-22] MEDS: MEROPENEM 500 MG in SODIUM CHLORIDE 0.9% 100 ML IV SCH ×2 (12:14→18:26)
[2019-12-22 13:43] LABS: Apearance,Urine CLOUDY (Clear); Bacteria,Urine Few /HPF (Few); Bilirubin,Urine Negative (Negative); Blood, Urine Moderate mg/dL (Negative); Glucose,Urine (UA) Negative (Negative); Hyaline Casts,Urine 38 /LPF (0-3); Ketones,Urine Negative (Negative); Mucus,Urine Few /LPF (Occasional); Nitrite,Urine Negative (Negative); Protein,Urine Negative; RBC,Urine 8 /HPF (0-4); Squamous Epithelial Cell,Urine Occasional /HPF (0-10); Urine Color Yellow (Yellow); Urine Specific Gravity 1.009 (1.001-1.035); Urine Urobilinogen < 2.0 EU/DL (0.2-1.0); WBC,Urine 19 /HPF (0-6)
[2019-12-22] MEDS ORDERED: TOBRAMYCIN INJ 300 MG in SODIUM CHLORIDE 0.9% 100 ML IV PRN (13:55)
[2019-12-23] MEDS: MEROPENEM 500 MG in SODIUM CHLORIDE 0.9% 100 ML IV SCH ×3 (03:43→18:37)
[2019-12-23 04:07] LABS: ABG HCO3 32.9 MMOL/L (20-26); ABG Oxygen Saturation 81.6 % (95-100); ABG PCO2 55.8 MM HG (35-48); ABG PH 7.389 (7.35-7.45); ABG PO2 47.9 MM HG (80-95); ABG TCO2 34.7 MMOL/L (23-27); Allen Test Positive; Pt O2 Delivery Device Ventilator
[2019-12-23 04:30] LABS: Basophils # 0.1 10*3/uL (0.0-0.2); Basophils % 0.2 % (0.0-0.8); Eosinophils % 0.1 % (0.00-10.9); Hematocrit 31.9 VOL% (35.7-47.0); Hemoglobin 9.4 GM/DL (12.0-16.0); Immature Granulocytes % 1.2 %; Lymphocytes # 1.8 10*3/uL (1.4-4.0); Lymphocytes % 5.6 % (21.3-54.2); Mean Corpuscular HGB Conc 29.5 GM/DL (32-36); Mean Corpuscular Volume 88.6 FL (87-102); Mean Platelet Volume 13.2 FL (9.6-12.0); Monocytes % 2.8 % (1.7-12.7); NRBC # 0.08 10*3/uL; Neutrophils % 90.1 % (38.7-73.9); Platelet Count 153 T/CUMM (130-400); Red Cell Distribution Width 21.2 % (9.3-17.3); White Blood Count 32.3 T/CUMM (4-12)
[2019-12-23 04:41] LABS: Calcium 8.9 MG/DL (8.5-10.1); Osmolality,Calculated 349.6 MOS/KG (273-304)
[2019-12-23 05:23] LABS: Band Neutrophils 2 % (0-10); Hypochromasia 1+; Lymphocytes 6 % (20-55); Microcytosis 1+; Nucleated Red Blood Cells 1 (0-5); Platelet Estimate Normal; Segmented Neutrophils 91 % (50-85); Total Cells Counted 100
[2019-12-23 05:24] LABS: Polychromasia Few; Stomatocytes Slight
[2019-12-23 05:25] LABS: Target Cells Slight
[2019-12-23] MEDS: METOPROLOL TARTRATE 5 MG/5 ML VIAL IV SCH ×3 (06:02→17:05)
[2019-12-23] MEDS: INSULIN REGULAR 100 UNIT/ML SUBCUT SCH ×3 (06:02→17:05)
[2019-12-23 06:07] VITALS: BP 156/90
[2019-12-23] MEDS: FUROSEMIDE 100 MG/10 ML VIAL IV SCH (08:30)
[2019-12-23] MEDS: FAMOTIDINE 20 MG/2 ML VIAL IV SCH (08:30)
[2019-12-23] MEDS: INSULIN GLARGINE 100 UNIT/ML SUBCUT SCH (08:30)
[2019-12-23] MEDS: SILDENAFIL 20 MG TABLET PO SCH ×2 (08:31→16:48)
[2019-12-23] MEDS: amLODIPine 10 MG TABLET PER TUBE SCH (08:31)
[2019-12-23] MEDS: methylPREDNISolone SOD SUC 40 MG/1 ML VIAL IV SCH (08:31)
[2019-12-23] MEDS: MENTHOL/ZINC OXIDE OINT 71 GM JAR TOP SCH (08:31)
[2019-12-23] MEDS ORDERED: ALBUMIN 25% 25 GM in PREMIX 1 EACH IV ONE (10:30)
[2019-12-23] MEDS: HEPARIN DRIP 25,000 UNITS/500 ML PREMIX IV SCH (10:39)
[2019-12-23] MEDS ORDERED: INSULIN GLARGINE 100 UNIT/ML SUBCUT ONE (11:00)
[2019-12-23] MEDS: MULTIVITAMIN LIQUID (CENTRUM) 60 ML BOTTLE PO SCH (12:08)
[2019-12-23] MEDS: ACETAMINOPHEN 325 MG/10.15 ML UDCUP NG PRN (12:08)
[2019-12-23] MEDS ORDERED: TOBRAMYCIN INJ 300 MG in SODIUM CHLORIDE 0.9% 100 ML IV ONE (14:00)
[2019-12-23] MEDS ORDERED: SODIUM BICARBONATE 50 MEQ/50 ML VIAL IV ONE ×2 (18:40→18:48)
[2019-12-23] MEDS ORDERED: NOREPINEPHRINE 4 MG/4 ML VIAL IV ONE (18:48)
[2019-12-24] MEDS ORDERED: INSULIN GLARGINE 100 UNIT/ML SUBCUT SCH (09:00)
== END 2019-12-23 18:51 | disposition expired | DRG 207 ==
LOC: N.ED 13:13 → N.EDINP 17:42 → SUPCPDRO 17:42 → SUATTDRO 17:42 → N.CC 20:15 → N.2E 11-30 22:38 → N.CC 12-04 11:01
PROVIDERS: ADMIT Internal Medicine; ATTEND Family Medicine